=== PATIENT | female | born 1985 | race African-American/Black ===

== ENCOUNTER 2016-09-12 11:24 | Day surgery (SDC) | payer MEDICAID ==
--- NOTE | 2016-09-12 11:32 | Short Stay Summary ---
Short Stay Documentation Date of service: 09/12/16 Narrative H&P: Pt is a 30yo AF G0 LMP 08/16/16 presents for surgical evaluation and treatment of extensive vaginal/rectal condylomas. She is scheduled for laser ablation of extensive vaginal/rectal condylomas. - History Principal diagnosis: Extensive condyloma acuminata H&P: obtained from office Past Medical History: HIV/AIDS, other (paranoid schizophrenia) Past Surgical History: No surgical history Social history: no significant social history, single, smoking - Allergies and Medications Current Medications: Allergies No Known Allergies Allergy (Verified 05/22/16 11:34) Home Medications Medication Instructions Recorded Confirmed Last Taken Type LORazepam [Ativan] 2 mg PO QDAY 11/30/15 07/09/16 12/09/15 22:00 History Ibuprofen [Motrin] 800 mg PO Q8HR PRN 12/10/15 07/09/16 12/09/15 22:00 History Hydroxyzine HCl 25 mg PO BID PRN #60 tablet 05/23/16 07/09/16 Unknown Rx Benztropine [Cogentin] 0.5 mg PO BID #60 tablet 06/21/16 07/09/16 Unknown Rx Docusate Sodium [Colace] 100 mg PO BID PRN #20 capsule 06/21/16 07/09/16 Unknown Rx Emtricitab/Rilpivirine/Tenofov 1 each PO DAILY #30 tablet 06/21/16 07/09/16 Unknown Rx [Complera Tablet] FLUoxetine [PROzac] 10 mg PO QDAY #30 tablet 06/21/16 07/09/16 Unknown Rx Magnesium Citrate [Citrate of 300 ml PO NOW #1 bottle 06/21/16 07/09/16 Unknown Rx Magnesia] cloZAPine 100 mg PO QAM #30 tablet 06/21/16 07/09/16 Unknown Rx - Physical exam General appearance: no acute distress Integumentary: no rash HEENT: Atraumatic Lungs: Clear to auscultation Breasts: deferred Heart: Regular rate Gastrointestinal: normal Female Genitourinary: lesions (extensive vulvar/rectal condyloma) Rectal Exam: other (condylomas) Extremities: No edema Neurological: Normal speech - Brief post op/procedure progress note Date of procedure: 09/12/16 Pre-op diagnosis: Extensive vaginal/rectal condylomas Post-op diagnosis: same Procedure: Laser ablation of extensive vaginal/rectal condylomas Anesthesia: GETA Findings: Extensive vaginal codylomas from the mons pubis, bilateral labia majora and abimael -rectal areas. Surgeon: CHIP GARG Estimated blood loss: minimal Pathology: none Condition: stable - Hospital course Hospital course: Unremarkable. - Disposition Condition at discharge: Good Disposition: DISCHARGED TO HOME OR SELFCARE - Discharge Diagnoses (1) Condyloma of female genitalia Status: Chronic Short Stay Discharge Plan Activity: no restrictions Diet: regular Wound: open to air, keep clean and dry Additional Instructions: Sitz baths twice a day Follow up with: PRIMARY CARE, [Primary Care Provider] - 7 Days CHIP GARG MD [Staff Physician] - 14 Days Prescriptions: Acetaminophen/Codeine [Tylenol #3] 1 tab PO Q6H PRN #30 tab PRN Reason: Pain, Moderate (4-6)
[2016-09-12] MEDS ORDERED: DIPRIVAN 10 MG/ML IV ONE (11:36)
[2016-09-12] MEDS ORDERED: XYLOCAINE CARDIAC IV ONE (11:36)
[2016-09-12] MEDS ORDERED: SUBLIMAZE ONE (11:36)
[2016-09-12] MEDS ORDERED: ANCEF/STERILE WATER 2 GM/20 ML 20 ML IV NR (12:00)
[2016-09-12] MEDS ORDERED: LACTATED RINGERS 1,000 ML IV SCH (12:00)
[2016-09-12 12:39] LABS: Hematocrit 40.9 % (30.3-42.9); Hemoglobin 13.8 gm/dl (10.1-14.3); Mean Corpuscular HGB Conc 34 % (30-34); Mean Corpuscular Hemoglobin 31 pg (28-32); Mean Corpuscular Volume 93 fl (79-97); Platelet Count 188 K/mm3 (140-440); White Blood Count 6.8 K/mm3 (4.5-11.0)
--- NOTE | 2016-09-12 13:15 | Anesthesia Day of Surgery ---
Anesthesia Day of Surgery - Day of Surgery Patient Examined: Yes Patient H&P Reviewed: Yes Patient is NPO: Yes
--- NOTE | 2016-09-12 13:18 | Anesthesia Consultation ---
Anesthesia Consult and Med Hx Date of service: 09/12/16 - Airway Anesthetic Teeth Evaluation: Good ROM Head & Neck: Adequate Mental/Hyoid Distance: Adequate Mallampati Class: Class I Intubation Access Assessment: Good - Pulmonary Exam CTA: Yes - Cardiac Exam Cardiac Exam: RRR - Pre-Operative Health Status ASA Pre-Surgery Classification: ASA3 Proposed Anesthetic Plan: General - Pre-Anesthesia Comment Pre-Anesthesia Comments: C/o left chest pain, HIV - Pulmonary Hx Smoking: Yes (BRIEFLY THREE YEARS AGO) Hx Asthma: No Hx Sleep Apnea: No - Cardiovascular System Hx Hypertension: No Hx Heart Attack/AMI: No Hx Heart Murmur: No - Central Nervous System Hx Seizures: No CVA: No Hx Psychiatric Problems: Yes (schizophrenic, on meds) - Gastrointestinal Hx Gastroesophageal Reflux Disease: No - Endocrine Hx Renal Disease: No Hx End Stage Renal Disease: No Hx Liver Disease: No - Hematic Hx Anemia: No Hx Sickle Cell Disease: No - Other Systems Hx Alcohol Use: Yes (SOMETIMES HAS HAD BEER OR WINE) Hx Substance Use: No Hx Cancer: No Hx Obesity: No - Additional Comments Anesthesia Medical History Comments: NAC
[2016-09-12] MEDS ORDERED: PEPCID PO NR (14:00)
[2016-09-12] MEDS ORDERED: VERSED ONE (15:58)
[2016-09-12] MEDS ORDERED: ZEMURON IV ONE (15:59)
[2016-09-12] MEDS ORDERED: QUELICIN ONE (15:59)
[2016-09-12] MEDS ORDERED: ZOFRAN ONE ×2 (16:16→16:17)
[2016-09-12] MEDS ORDERED: DECADRON ONE (16:16)
[2016-09-12] MEDS ORDERED: LACTATED RINGERS 1,000 ML ONE (16:29)
[2016-09-12] MEDS ORDERED: TORADOL ONE (16:38)
[2016-09-12] MEDS ORDERED: XYLOCAINE TOPICAL 2% MM ONE (16:58)
[2016-09-12] MEDS ORDERED: THERMAZENE 50 GRAM TP ONE (16:58)
--- NOTE | 2016-09-12 17:10 | Post Anesthesia Evaluation ---
- Post Anesthesia Evaluation Patient Participated: Yes Airway Patent: Yes Stable Respiratory Function: Yes Nausea/Vomiting: No Temp > 96.8F: Yes Pain Manageable: Yes Adequeate Hydration: Yes Anesthesia Complications: No
--- NOTE | 2016-09-12 17:16 | Operative Report ---
Operative Report Operative Report: Date of procedure: 09/12/2016 Pre-operative diagnosis: Extensive vaginal/rectal condylomas Post-operative diagnosis: Same Procedure name(s): Laser ablation of extensive vaginal/rectal condylomas Surgeon: Todd Quesada MD Teacher Of The Handicapped: None Anesthesia: General endotracheal intubation by Dr. Patrick Sy EBL: Minimal Findings: Extensive condylomas extending from the mons pubis to both labia majoras bilaterally and down to the abimael-rectal area Procedure: After the patient was correctly identified, she was prepped and draped with wet towels in usual sterile fashion and placed in dorsolithotomy position. The pubic hairs were shaved thus exposing the condylomas. The carbon dioxide laser was set at 10 W continuous, and was used to completely ablate all the condylomas from the mons pubis, the left and right labia majora, and the abimael-rectal area. After all the condylomas was satisfactorily ablated, the procedure was considered complete. A mixture of 1% Silvadene cream and viscous lidocaine was applied to the perineal area including the mons and the rectum. The patient tolerated the procedure well and was transported to recovery room in stable condition.
[2016-09-12 17:37] VITALS: BP 111/76
== END 2016-09-12 18:55 | disposition home or self-care (01) ==
LOC: OR 11:24
PROVIDERS: ATTEND Obstetrics & Gynecology
DX: A63.0 Anogenital (venereal) warts (principal); F20.0 Paranoid schizophrenia; F17.210 Nicotine dependence, cigarettes, uncomplicated; Z72.89 Other problems related to lifestyle
CPT/HCPCS: 36415; 57065; 81025; 85027; J0330; J0690; J1100; J1885; J2001; J2250; J2405; J2704; J3010; J7120

== ENCOUNTER 2016-10-01 12:37 | Emergency (ER) | payer MEDICAID ==
[2016-10-01 12:49] VITALS: BP 113/77
--- NOTE | 2016-10-01 16:21 | Emergency Department Report ---
HPI - General Chief Complaint: Recheck/Abnormal Lab/Rx Time Seen by Provider: 10/01/16 16:14 - HPI HPI: 30-year-old female presents today stating she wants a refill for hydroxyzine HCL 25 mg one tablet by mouth twice a day as needed for anxiety. Patient was prescribed this medication here by Dr. Sterling and states that her psychologist would not refill this medication. Patient is currently only taking clozapine 100 mg by mouth twice a day. Patient denies any medical complaints. Denies fever, chills, nausea, vomiting, chest pain, shortness of breath, abdominal pain. Denies suicidal or homicidal ideations. ED Past Medical Hx - Past Medical History Hx Hypertension: No Hx Heart Attack/AMI: No Hx Congestive Heart Failure: No Hx GERD: No (NOT DIAGNOSED) Hx Liver Disease: No Hx Renal Disease: No Hx Sickle Cell Disease: No Hx Arthritis: No Hx Seizures: No Hx Psychiatric Treatment: Yes (paranoid schizophrenia, PANIC ATTACKS, frequent hospitalizations) Hx Asthma: No Hx Tuberculosis: No Hx HIV: Yes Additional medical history: Psychiatric medications are unknown - Social History Smoking Status: Current Every Day Smoker Substance Use Type: Alcohol - Medications Home Medications: Home Medications Medication Instructions Recorded Confirmed Last Taken Type Benztropine [Cogentin] 0.5 mg PO BID #60 tablet 06/21/16 09/12/16 09/11/16 22: 00 Rx Docusate Sodium [Colace] 100 mg PO BID PRN #20 capsule 06/21/16 09/12/16 Rx Emtricitab/Rilpivirine/Tenofov 1 each PO DAILY #30 tablet 06/21/16 09/12/16 09:30 Rx [Complera Tablet] FLUoxetine [PROzac] 10 mg PO QDAY #30 tablet 06/21/16 09/12/16 09/11/16 22:00 Rx Acetaminophen/Codeine [Tylenol #3] 1 tab PO Q6H PRN #30 tab 09/12/16 Unknown Rx cloZAPine 100 mg PO BID 09/12/16 09/12/16 09/11/16 21:00 History Hydroxyzine HCl 25 mg PO BID #30 tablet 10/01/16 Unknown Rx ED Review of Systems ROS: Stated complaint: RX REFILL Other details as noted in HPI Physical Exam - Physical Exam Vital Signs: Vital Signs 10/01/16 12:45 Temperature 97.9 F Pulse Rate 120 H Respiratory 18 Rate Blood Pressure 113/77 O2 Sat by Pulse 98 Oximetry Physical Exam: GENERAL: The patient is well-developed and well-nourished. Patient is in NAD. HEAD: Normocephalic. Atraumatic. CHEST/LUNGS: Clear to auscultation throughout. HEART/CARDIOVASCULAR: Regular rate and rhythm. No murmurs, rubs or gallops. ABDOMEN: Abdomen is soft, nontender. Bowel sounds normoactive. No guarding or rebound tenderness. EXTREMITIES: Peripheral pulses intact. Capillary refill less than 2 seconds. NEURO: Alert and oriented x 3. Normal gait. ED Course Vital Signs 10/01/16 12:45 Temperature 97.9 F Pulse Rate 120 H Respiratory 18 Rate Blood Pressure 113/77 O2 Sat by Pulse 98 Oximetry ED Medical Decision Making - Lab Data Vital Signs 10/01/16 10/01/16 12:45 16:39 Temperature 97.9 F Pulse Rate 120 H 96 H Respiratory 18 16 Rate Blood Pressure 113/77 O2 Sat by Pulse 98 99 Oximetry - Medical Decision Making 30-year-old female presents today for medication refill of hydroxyzine HCL. Explained to patient that emergency department is not place for medication refill, patient expressed understanding. Recommended patient to follow up with her psychologist. Patient is in no acute distress at this time. She will be discharged home and is encouraged to follow up with a primary care provider. She will be sent home on hydroxyzine and is encouraged to return to the emergency room for any worsening symptoms. Critical care attestation.: If time is entered above; I have spent that time in minutes in the direct care of this critically ill patient, excluding procedure time. ED Disposition Clinical Impression: Anxiety Disposition: DISCHARGED TO HOME OR SELFCARE Is pt being admited?: No Does the pt Need Aspirin: No Condition: Stable Instructions: Anxiety (ED) Additional Instructions: Follow-up with primary care provider. Return to the emergency department if symptoms worsen. Prescriptions: Hydroxyzine HCl 25 mg PO BID #30 tablet Referrals: PRIMARY CAREMD [Primary Care Provider] - 3-5 Days NIKOS CONTRERAS MD [Staff Physician] - 3-5 Days Forms: Work/School Release Form(ED) Time of Disposition: 16:26
== END 2016-10-01 16:39 | disposition home or self-care (01) ==
LOC: ED 12:37
DX: F41.9 Anxiety disorder, unspecified (principal); Z21 Asymptomatic human immunodeficiency virus [HIV] infection status; F17.200 Nicotine dependence, unspecified, uncomplicated
CPT/HCPCS: 99282

== ENCOUNTER 2016-10-17 10:57 | Emergency (ER) | payer MEDICAID ==
--- NOTE | 2016-10-17 13:30 | Emergency Department Report ---
Chief Complaint: Medical Clearance Stated Complaint: MEDICATION REFILL Time Seen by Provider: 10/17/16 13:09 - HPI History of Present Illness: Patient presents with request for refill on hydroxyzine which she states she takes for anxiety. With continued questioning to the patient she asks, "when am I going to see a dr?" She then begins to yell, scream at me asking why she has been waiting for so long. - ROS Review of Systems: All other systems unremarkable except documentation in HPI - Exam Vital Signs: Vital Signs 10/17/16 11:03 Temperature 98.8 F Pulse Rate 95 H Respiratory 16 Rate Blood Pressure 108/76 O2 Sat by Pulse 100 Oximetry Physical Exam: Physical exam was not done due to patient yelling and screaming before full history was taken MSE screening note: Focused history and physical exam performed. Due to findings the following was ordered: seen by provider, laboratory studies ordered, and to go to main ED to be seen by physician ED Medical Decision Making - Medical Decision Making seen by provider, laboratory studies ordered, and to go to main ED to be seen by physician - Differential Diagnosis anxiety, schizophrenia ED Disposition for MSE Condition: Stable Referrals: PRIMARY CARE, [Primary Care Provider] - 3-5 Days
--- NOTE | 2016-10-17 14:59 | Emergency Department Report ---
HPI - General Chief Complaint: Medical Clearance Time Seen by Provider: 10/17/16 13:09 - HPI HPI: The patient is a 31-year-old female presents for evaluation of anxiety. The patient reports constant and severe anxiety for the past one to 2 days, improved with rest. She states that she has been out of her anxiety medication. The patient denies fever, headache, unexplained weight loss or weight gain, heat or cold intolerance, skin, hair, or nail changes, neuro deficits, homicidal ideations, or auditory or visual hallucinations. ED Past Medical Hx - Past Medical History Previous Medical History?: Yes Hx Hypertension: No Hx Heart Attack/AMI: No Hx Congestive Heart Failure: No Hx GERD: No (NOT DIAGNOSED) Hx Liver Disease: No Hx Renal Disease: No Hx Sickle Cell Disease: No Hx Arthritis: No Hx Seizures: No Hx Psychiatric Treatment: Yes (paranoid schizophrenia, PANIC ATTACKS, frequent hospitalizations) Hx Asthma: No Hx Tuberculosis: No Hx HIV: Yes Additional medical history: Psychiatric medications are unknown - Surgical History Past Surgical History?: No - Social History Smoking Status: Never Smoker Substance Use Type: Alcohol - Medications Home Medications: Home Medications Medication Instructions Recorded Confirmed Last Taken Type Benztropine [Cogentin] 0.5 mg PO BID #60 tablet 06/21/16 09/12/16 09/11/16 22: 00 Rx Docusate Sodium [Colace] 100 mg PO BID PRN #20 capsule 06/21/16 09/12/16 Rx Emtricitab/Rilpivirine/Tenofov 1 each PO DAILY #30 tablet 06/21/16 09/12/16 09:30 Rx [Complera Tablet] FLUoxetine [PROzac] 10 mg PO QDAY #30 tablet 06/21/16 09/12/16 09/11/16 22:00 Rx Acetaminophen/Codeine [Tylenol #3] 1 tab PO Q6H PRN #30 tab 09/12/16 Unknown Rx cloZAPine 100 mg PO BID 09/12/16 09/12/16 09/11/16 21:00 History Hydroxyzine HCl 25 mg PO BID #10 tablet 10/17/16 Unknown Rx ED Review of Systems ROS: Stated complaint: MEDICATION REFILL Other details as noted in HPI Constitutional: denies: fever ENT: denies: throat or neck pain Respiratory: denies: cough, shortness of breath Cardiovascular: denies: chest pain Endocrine: denies unexplained weight loss or gain Gastrointestinal: denies: abdominal pain, nausea Genitourinary: denies: dysuria Musculoskeletal: denies: leg swelling Skin: denies: rash Neurological: denies: headache Hematological/Lymphatic: denies: easy bleeding or easy bruising Psych: reports anxiety Physical Exam - Physical Exam Vital Signs: Vital Signs 10/17/16 11:03 Temperature 98.8 F Pulse Rate 95 H Respiratory 16 Rate Blood Pressure 108/76 O2 Sat by Pulse 100 Oximetry Physical Exam: General: well-nourished, well-developed, no acute distress Head: Normocephalic, atraumatic Eyes: normal sclera ENT: Mucous membranes are pink and moist Neck: trachea midline, neck supple, No neck stiffness, no cervical adenopathy Respiratory: Breath sounds equal bilaterally, no wheezing, rales, or rhonchi Cardio: S1 and S2 present, no murmurs, rubs, gallops, capillary refill is brisk Abdomen: Normoactive bowel sounds, soft abdomen, no rigidity, no guarding or rebound tenderness Chest WALL/Back: No tenderness to palpation of the chest wall, no CVA tenderness with percussion Musc: No pitting edema Skin: No rash Neuro: no facial drooping, normal speech Psych: Normal affect, anxious mood, normal insight, normal cognition, no suicidal ideation ED Course Vital Signs 10/17/16 11:03 Temperature 98.8 F Pulse Rate 95 H Respiratory 16 Rate Blood Pressure 108/76 O2 Sat by Pulse 100 Oximetry ED Medical Decision Making - Medical Decision Making The patient was seen and examined by myself. The patient is placed on a fur tinter and continuous pulse ox. On initial evaluation, the patient was found to be in no distress. No signs of acute manic episode or metabolic etiology of patient's symptoms. The patient is stable for discharge with outpatient follow-up. The patient is given follow-up and return instructions. The patient expressed understanding and agreed with the plan. The patient is discharged in stable condition. Critical care attestation.: If time is entered above; I have spent that time in minutes in the direct care of this critically ill patient, excluding procedure time. ED Disposition Clinical Impression: Panic attack Disposition: DISCHARGED TO HOME OR SELFCARE Is pt being admited?: No Does the pt Need Aspirin: No Condition: Stable Instructions: Anxiety (ED), Generalized Anxiety Disorder (ED) Referrals: [facility] [Outside] - 3-5 Days [facility] [Outside] - 3-5 Days Time of Disposition: 15:02
[2016-10-17 15:23] VITALS: BP 111/77
== END 2016-10-17 15:23 | disposition home or self-care (01) ==
LOC: ED 10:57
DX: F41.0 Panic disorder [episodic paroxysmal anxiety] (principal); F20.0 Paranoid schizophrenia
CPT/HCPCS: 99283

== ENCOUNTER 2016-10-24 17:26 | Emergency (ER) | payer MEDICAID ==
[2016-10-24 17:59] VITALS: BP 106/79
== END 2016-10-24 20:00 | disposition left against medical advice (07) ==
LOC: ED 17:26
DX: Z76.0 Encounter for issue of repeat prescription (principal); Z53.21 Procedure and treatment not carried out due to patient leaving prior to being seen by health care provider

== ENCOUNTER 2016-12-04 20:26 | Emergency (ER) | payer MEDICAID | END 2016-12-04 21:00 | disposition left against medical advice (07) | LOC: ED 20:26 | DX: K59.00 Constipation, unspecified (principal); Z53.21 Procedure and treatment not carried out due to patient leaving prior to being seen by health care provider ==

== ENCOUNTER 2017-01-23 16:54 | Emergency (ER) | payer MEDICAID ==
[2017-01-23 17:05] VITALS: BP 116/77
--- NOTE | 2017-01-23 18:23 | Emergency Department Report ---
Entered by WENCESLAO MATA, acting as scribe for SHAINA PEREZ PA. Chief Complaint: Sore Throat Stated Complaint: SORE THROAT Time Seen by Provider: 01/23/17 17:55 - HPI History of Present Illness: Pt c/o sore throat and fever that began 2 days ago. Pt's fever is currently 98.4 in triage. PMHx of HIV, anxiety, and schizophrenia Non-compliant with medications, because she states she doesn't feel comfortable taking medication. Pt also states that she doesn't want to go home and have no place to go, because she argues a lot with her father. - ROS Review of Systems: All systems are negative unless stated in the HPI above. - Exam Vital Signs: Vital Signs 01/23/17 17:00 Temperature 98 F Pulse Rate 95 H Respiratory 18 Rate Blood Pressure 116/77 O2 Sat by Pulse 95 Oximetry Physical Exam: GENERAL: Patient is alert and oriented x 3. No apparent distress, normal gait, atraumatic. PSYCHIATRIC: Anxious. Denies suicidal or homicidal ideations. MSE screening note: Focused history and physical exam performed. Due to findings the following was ordered: ED Medical Decision Making - Medical Decision Making Patient seen by provider in triage area. Patient will be sent to the main ED to be seen by another provider for further evaluation. ED Disposition for MSE Condition: Stable This documentation as recorded by the scribe,WENCESLAO MATA,accurately reflects the service I personally performed and the decisions made by me, SHAINA PEREZ PA.
--- NOTE | 2017-01-27 15:58 | ED Elopement Review ---
ED Pt Elopement review - Call Back decision Pt Call Back Decision: No action required
== END 2017-01-23 18:23 | disposition left against medical advice (07) ==
LOC: ED 16:54
DX: J02.9 Acute pharyngitis, unspecified (principal); R50.9 Fever, unspecified; F41.9 Anxiety disorder, unspecified; F20.9 Schizophrenia, unspecified; Z53.21 Procedure and treatment not carried out due to patient leaving prior to being seen by health care provider

== ENCOUNTER 2017-04-24 12:54 | Emergency (ER) | payer MEDICAID ==
--- NOTE | 2017-04-24 14:07 | Emergency Department Report ---
Stated Complaint: MH/ MEDS Time Seen by Provider: 04/24/17 14:05 - HPI History of Present Illness: PT states she feels depressed. PT states her family does not want to live with her. PT states she does not feel safe at home. - ROS Review of Systems: + depression - Exam Physical Exam: PT is alert rapid speech in triage MSE screening note: Focused history and physical exam performed. Due to findings the following was ordered: labs ED Disposition for MSE Condition: Stable
[2017-04-24 14:10] VITALS: BP 126/97
[2017-04-24 14:23] LABS: Urine Drugs of Abuse Note Disclamer
[2017-04-24 14:29] LABS: Basophils % (Auto) 0.3 % (0.0-1.8); Eosinophils % (Auto) 0.8 % (0.0-4.3); Hematocrit 40.1 % (30.3-42.9); Hemoglobin 13.6 gm/dl (10.1-14.3); Mean Corpuscular HGB Conc 34 % (30-34); Mean Corpuscular Hemoglobin 32 pg (28-32); Mean Corpuscular Volume 94 fl (79-97); Platelet Count 218 K/mm3 (140-440); Red Blood Count 4.26 M/mm3 (3.65-5.03); Red Cell Distribution Width 13.9 % (13.2-15.2); White Blood Count 7.8 K/mm3 (4.5-11.0)
[2017-04-24 14:35] LABS: Bacteria,Urine 1+ /HPF (Negative); Bilirubin,Urine NEG (Negative); Blood,Urine NEG (Negative); Ketones,Urine NEG (Negative); Leukocyte Esterase,Urine NEG (Negative); Mucus,Urine FEW /HPF; Nitrite,Urine NEG (Negative); Protein,Urine <15 mg/dL mg/dL (Negative); Urobilinogen,Urine < 2.0 mg/dL (<2.0)
[2017-04-24 14:46] LABS: Alanine Aminotransferase 16 units/L (7-56); Albumin 4.1 g/dL (3.9-5); Alkaline Phosphatase 64 units/L (35-129); Anion Gap 15 mmol/L; BUN/Creatinine Ratio 11.66; Blood Urea Nitrogen 7 mg/dL (7-17); Calcium 8.9 mg/dL (8.4-10.2); Carbon Dioxide 27 mmol/L (22-30); Chloride 100.4 mmol/L (98-107); Glucose 73 mg/dL (65-100); Lipase 22 units/L (13-60); Potassium 4.1 mmol/L (3.6-5.0); Sodium 138 mmol/L (137-145); Total Protein 8.2 g/dL (6.3-8.2)
[2017-04-24 14:49] LABS: RBC,Urine < 1.0 /HPF (0.0-6.0); WBC,Urine < 1.0 /HPF (0.0-6.0)
--- NOTE | 2017-04-24 23:37 | ED Elopement Review ---
ED Pt Elopement review - Results review Lab results: Laboratory Tests 04/24/17 04/24/17 04/24/17 14:13 14:13 14:13 WBC 7.8 RBC 4.26 Hgb 13.6 Hct 40.1 MCV 94 MCH 32 MCHC 34 RDW 13.9 Plt Count 218 Lymph % (Auto) 29.6 [place] % (Auto) 8.0 H Eos % (Auto) 0.8 Baso % (Auto) 0.3 Lymph # 2.3 Garrard # 0.6 Eos # 0.1 Baso # 0.0 Seg Neutrophils % 61.3 Seg Neutrophils # 4.8 Sodium 138 Potassium 4.1 Chloride 100.4 Carbon Dioxide 27 Anion Gap 15 BUN 7 Creatinine 0.6 L Estimated GFR > 60 BUN/Creatinine Ratio 11.66 Glucose 73 Calcium 8.9 Total Bilirubin 0.40 AST 21 ALT 16 Alkaline Phosphatase 64 Total Protein 8.2 Albumin 4.1 Albumin/Globulin Ratio 1.0 Lipase 22 HCG, Qual Urine Color Urine Turbidity Urine pH Ur Specific [place] Urine Protein Urine Glucose (UA) Urine Ketones Urine Blood Urine Nitrite Urine Bilirubin Urine Urobilinogen Ur Leukocyte Esterase Urine WBC (Auto) Urine RBC (Auto) U Epithel Cells (Auto) Urine Bacteria (Auto) Urine Mucus Urine Opiates Screen Urine Methadone Screen Acetaminophen < 15.0 Ur Barbiturates Screen Ur Phencyclidine Scrn Ur Amphetamines Screen U Benzodiazepines Scrn Urine Cocaine Screen U Marijuana (THC) Screen Drugs of Abuse Note Plasma/Serum Alcohol 04/24/17 04/24/17 04/24/17 14:13 14:13 14:17 WBC RBC Hgb Hct MCV MCH MCHC RDW Plt Count Lymph % (Auto) [place] % (Auto) Eos % (Auto) Baso % (Auto) Lymph # [place] # Eos # Baso # Seg Neutrophils % Seg Neutrophils # Sodium Potassium Chloride Carbon Dioxide Anion Gap BUN Creatinine Estimated GFR BUN/Creatinine Ratio Glucose Calcium Total Bilirubin AST ALT Alkaline Phosphatase Total Protein Albumin Albumin/Globulin Ratio Lipase HCG, Qual Negative Urine Color Straw Urine Turbidity Clear Urine pH 6.0 Ur Specific [place] 1.008 Urine Protein <15 mg/dl Urine Glucose (UA) Neg Urine Ketones Neg Urine Blood Neg Urine Nitrite Neg Urine Bilirubin Neg Urine Urobilinogen < 2.0 Ur Leukocyte Esterase Neg Urine WBC (Auto) < 1.0 Urine RBC (Auto) < 1.0 U Epithel Cells (Auto) 3.0 Urine Bacteria (Auto) 1+ Urine Mucus Few Urine Opiates Screen Urine Methadone Screen Acetaminophen Ur Barbiturates Screen Ur Phencyclidine Scrn Ur Amphetamines Screen U Benzodiazepines Scrn Urine Cocaine Screen U Marijuana (THC) Screen Drugs of Abuse Note Plasma/Serum Alcohol < 0.01 04/24/17 14:17 WBC RBC Hgb Hct MCV MCH MCHC RDW Plt Count Lymph % (Auto) [place] % (Auto) Eos % (Auto) Baso % (Auto) Lymph # [place] # Eos # Baso # Seg Neutrophils % Seg Neutrophils # Sodium Potassium Chloride Carbon Dioxide Anion Gap BUN Creatinine Estimated GFR BUN/Creatinine Ratio Glucose Calcium Total Bilirubin AST ALT Alkaline Phosphatase Total Protein Albumin Albumin/Globulin Ratio Lipase HCG, Qual Urine Color Urine Turbidity Urine pH Ur Specific [place] Urine Protein Urine Glucose (UA) Urine Ketones Urine Blood Urine Nitrite Urine Bilirubin Urine Urobilinogen Ur Leukocyte Esterase Urine WBC (Auto) Urine RBC (Auto) U Epithel Cells (Auto) Urine Bacteria (Auto) Urine Mucus Urine Opiates Screen Presumptive negative Urine Methadone Screen Presumptive negative Acetaminophen Ur Barbiturates Screen Presumptive negative Ur Phencyclidine Scrn Presumptive negative Ur Amphetamines Screen Presumptive negative U Benzodiazepines Scrn Presumptive negative Urine Cocaine Screen Presumptive negative U Marijuana (THC) Screen Presumptive negative Drugs of Abuse Note Disclamer Plasma/Serum Alcohol - Call Back decision Pt Call Back Decision: No action required
== END 2017-04-24 17:55 | disposition left against medical advice (07) ==
LOC: ED 12:54
DX: F32.9 Major depressive disorder, single episode, unspecified (principal); Z53.21 Procedure and treatment not carried out due to patient leaving prior to being seen by health care provider
CPT/HCPCS: 36415; 80053; 80307; 81001; 83690; 84703; 85025; G0480; 80320

== ENCOUNTER 2017-05-08 09:53 | Emergency (ER) | payer MEDICAID ==
[2017-05-08] MEDS ORDERED: ZOFRAN IV ONE (11:44)
[2017-05-08] MEDS ORDERED: NACL 0.9% 1000 ML 1,000 ML IV ONE (11:44)
[2017-05-08 12:11] LABS: Basophils % (Auto) 0.2 % (0.0-1.8); Eosinophils % (Auto) 0.5 % (0.0-4.3); Hematocrit 42.6 % (30.3-42.9); Hemoglobin 14.5 gm/dl (10.1-14.3); Mean Corpuscular HGB Conc 34 % (30-34); Mean Corpuscular Hemoglobin 32 pg (28-32); Mean Corpuscular Volume 95 fl (79-97); Platelet Count 213 K/mm3 (140-440); Red Blood Count 4.51 M/mm3 (3.65-5.03); Red Cell Distribution Width 13.7 % (13.2-15.2); White Blood Count 9.8 K/mm3 (4.5-11.0)
[2017-05-08 12:29] LABS: Alanine Aminotransferase 11 units/L (7-56); Alkaline Phosphatase 72 units/L (35-129); Anion Gap 18 mmol/L; Blood Urea Nitrogen 7 mg/dL (7-17); Calcium 8.9 mg/dL (8.4-10.2); Carbon Dioxide 23 mmol/L (22-30); Chloride 99.7 mmol/L (98-107); Glucose 78 mg/dL (65-100); Lipase 13 units/L (13-60); Sodium 137 mmol/L (137-145); Total Protein 8.2 g/dL (6.3-8.2)
--- NOTE | 2017-05-08 12:30 | Emergency Department Report ---
ED Abdominal Pain HPI - General Chief Complaint: Abdominal Pain Stated Complaint: ABD PAIN Time Seen by Provider: 05/08/17 11:21 Source: patient, EMS Mode of arrival: Ambulatory Limitations: Language Barrier - History of Present Illness Initial Comments: 31-year-old female with known psychiatric history here complaining of vague abdominal pain. Patient denies SI or HI. She is requesting a surgery on her abdomen because there is something inside. Denies fevers chills nausea vomiting. Denies any plans to harm herself. MD Complaint: abdominal pain Location: diffuse Radiation: none Migration to: no migration Improves With: nothing Worsens With: nothing Associated Symptoms: denies other symptoms - Related Data Home Medications Medication Instructions Recorded Confirmed Last Taken cloZAPine 100 mg PO BID 09/12/16 09/12/16 09/11/16 21:00 Previous Rx's Medication Instructions Recorded Last Taken Type Benztropine [Cogentin] 0.5 mg PO BID #60 tablet 06/21/16 09/11/16 22:00 Rx Docusate Sodium [Colace] 100 mg PO BID PRN #20 capsule 06/21/16 08/29/16 Rx Emtricitab/Rilpivirine/Tenofov 1 each PO DAILY #30 tablet 06/21/16 09/12/16 09: 30 Rx [Complera Tablet] FLUoxetine [PROzac] 10 mg PO QDAY #30 tablet 06/21/16 09/11/16 22:00 Rx Acetaminophen/Codeine [Tylenol #3] 1 tab PO Q6H PRN #30 tab 09/12/16 Unknown Rx Hydroxyzine HCl 25 mg PO BID #10 tablet 10/17/16 Unknown Rx Allergies Allergy/AdvReac Type Severity Reaction Status Date / Time No Known Allergies Allergy Verified 05/22/16 11:34 ED Review of Systems ROS: Stated complaint: ABD PAIN Other details as noted in HPI Comment: All other systems reviewed and negative Constitutional: denies: chills, fever Eyes: denies: eye pain, eye discharge, vision change ENT: denies: ear pain, throat pain Respiratory: denies: cough, shortness of breath, wheezing Cardiovascular: denies: chest pain, palpitations Endocrine: no symptoms reported Gastrointestinal: denies: abdominal pain, nausea, diarrhea Genitourinary: denies: urgency, dysuria, discharge Musculoskeletal: denies: back pain, joint swelling, arthralgia Skin: denies: rash, lesions Neurological: denies: headache, weakness, paresthesias Psychiatric: denies: anxiety, depression Hematological/Lymphatic: denies: easy bleeding, easy bruising ED Past Medical Hx - Past Medical History Previous Medical History?: Yes Hx Hypertension: No Hx Heart Attack/AMI: No Hx Congestive Heart Failure: No Hx GERD: (NOT DIAGNOSED) Hx Liver Disease: No Hx Renal Disease: No Hx Sickle Cell Disease: No Hx Arthritis: No Hx Seizures: No Hx Psychiatric Treatment: Yes (paranoid schizophrenia, PANIC ATTACKS, frequent hospitalizations) Hx Asthma: No Hx Tuberculosis: No Hx HIV: Yes Additional medical history: Psychiatric medications are unknown - Surgical History Past Surgical History?: No - Family History Family history: no significant - Social History Smoking Status: Former Smoker Substance Use Type: Alcohol, Prescribed - Medications Home Medications: Home Medications Medication Instructions Recorded Confirmed Last Taken Type Benztropine [Cogentin] 0.5 mg PO BID #60 tablet 06/21/16 09/12/16 09/11/16 22: 00 Rx Docusate Sodium [Colace] 100 mg PO BID PRN #20 capsule 06/21/16 09/12/16 Rx Emtricitab/Rilpivirine/Tenofov 1 each PO DAILY #30 tablet 06/21/16 09/12/16 09:30 Rx [Complera Tablet] FLUoxetine [PROzac] 10 mg PO QDAY #30 tablet 06/21/16 09/12/16 09/11/16 22:00 Rx Acetaminophen/Codeine [Tylenol #3] 1 tab PO Q6H PRN #30 tab 09/12/16 Unknown Rx cloZAPine 100 mg PO BID 09/12/16 09/12/16 09/11/16 21:00 History Hydroxyzine HCl 25 mg PO BID #10 tablet 10/17/16 Unknown Rx ED Physical Exam - General Limitations: Language Barrier General appearance: alert, in no apparent distress, other (disheveled) - Head Head exam: Present: atraumatic, normocephalic - Eye Eye exam: Present: normal appearance - ENT ENT exam: Present: mucous membranes moist - Neck Neck exam: Present: normal inspection - Respiratory Respiratory exam: Present: normal lung sounds bilaterally. Absent: respiratory distress, wheezes, rales - Cardiovascular Cardiovascular Exam: Present: regular rate, normal rhythm. Absent: systolic murmur, diastolic murmur, rubs, gallop - GI/Abdominal GI/Abdominal exam: Present: soft, distended, normal bowel sounds. Absent: tenderness, guarding, rebound, rigid - Extremities Exam Extremities exam: Present: normal inspection - Back Exam Back exam: Present: normal inspection - Neurological Exam Neurological exam: Present: alert, oriented X3 - Psychiatric Psychiatric exam: Present: normal affect, normal mood - Skin Skin exam: Present: warm, dry, intact, normal color. Absent: rash ED Course Vital Signs 05/08/17 05/08/17 09:57 11:24 Temperature 97.8 F Pulse Rate 94 H Respiratory 20 18 Rate Blood Pressure 109/78 O2 Sat by Pulse 100 100 Oximetry ED Medical Decision Making - Lab Data Result diagrams: 05/08/17 11:52 05/08/17 11:52 Laboratory Results - last 24 hr 05/08/17 05/08/17 11:52 11:52 WBC 9.8 RBC 4.51 Hgb 14.5 H Hct 42.6 MCV 95 MCH 32 MCHC 34 RDW 13.7 Plt Count 213 Lymph % (Auto) 27.7 [place] % (Auto) 5.9 Eos % (Auto) 0.5 Baso % (Auto) 0.2 Lymph # 2.7 [place] # 0.6 Eos # 0.1 Baso # 0.0 Seg Neutrophils % 65.7 Seg Neutrophils # 6.4 Sodium 137 Potassium 4.0 Chloride 99.7 Carbon Dioxide 23 Anion Gap 18 BUN 7 Creatinine 0.5 L Estimated GFR > 60 BUN/Creatinine Ratio 14.00 Glucose 78 Calcium 8.9 Total Bilirubin 0.50 AST 18 ALT 11 Alkaline Phosphatase 72 Total Protein 8.2 Albumin 4.0 Albumin/Globulin Ratio 1.0 Lipase 13 - Medical Decision Making 29-year-old female with known psychiatric history complaining of normal pain. This likely psychiatric in nature. Plan check labs and into discharge home. Labs unremarkable - plan to discharge home. UA still pending. Critical care attestation.: If time is entered above; I have spent that time in minutes in the direct care of this critically ill patient, excluding procedure time. ED Disposition Clinical Impression: Abdominal pain Disposition: DC-01 TO HOME OR SELFCARE Is pt being admited?: No Condition: Stable Instructions: Abdominal Pain (ED) Referrals: PRIMARY CARE, [Primary Care Provider] - 3-5 Days
[2017-05-08 12:31] LABS: Bilirubin,Direct < 0.2 mg/dL (0-0.2)
[2017-05-08] MEDS ORDERED: PEPCID ONE (13:37)
[2017-05-08] MEDS ORDERED: PEPCID PO ONE (13:46)
[2017-05-08 16:33] VITALS: BP 110/78
[2017-05-08 16:40] LABS: Bilirubin,Urine NEG (Negative); Blood,Urine LG (Negative); Ketones,Urine 20 mg/dL (Negative); Leukocyte Esterase,Urine MOD (Negative); Mucus,Urine FEW /HPF; Nitrite,Urine NEG (Negative); Protein,Urine <15 mg/dL mg/dL (Negative); Urobilinogen,Urine < 2.0 mg/dL (<2.0)
== END 2017-05-08 16:36 | disposition home or self-care (01) ==
LOC: ED 09:53
DX: F20.0 Paranoid schizophrenia (principal); R10.84 Generalized abdominal pain
CPT/HCPCS: 36415; 80048; 80074; 81001; 83690; 84703; 85025; 96361; 96374; 99284; J2405; J7030

== ENCOUNTER 2017-07-23 07:25 | Emergency (ER) | payer MEDICAID ==
--- NOTE | 2017-07-23 08:27 | Emergency Department Report ---
Chief Complaint: Medical Clearance Stated Complaint: ALL OVER BODDY PAIN Time Seen by Provider: 07/23/17 08:26 - HPI History of Present Illness: psych hx wants meds refilled hyperverbal told me just ran out of med told rn it has been 2 y states whole body hurts brenda vagina will need eval a rx given labs and urine ordered vss nad non toxic no si no hi no a/v hollins - Exam Vital Signs: Vital Signs 07/23/17 07:29 Temperature 98.1 F Pulse Rate 102 H Respiratory 16 Rate Blood Pressure 108/68 O2 Sat by Pulse 100 Oximetry MSE screening note: Focused history and physical exam performed. Due to findings the following was ordered: ED Disposition for MSE Condition: Stable Referrals: PRIMARY CARE, [Primary Care Provider] - 3-5 Days
[2017-07-23 08:47] LABS: Urine Drugs of Abuse Note Disclamer
[2017-07-23 08:52] LABS: Basophils % (Auto) 0.4 % (0.0-1.8); Eosinophils % (Auto) 0.8 % (0.0-4.3); Hematocrit 40.5 % (30.3-42.9); Hemoglobin 13.3 gm/dl (10.1-14.3); Mean Corpuscular HGB Conc 33 % (30-34); Mean Corpuscular Hemoglobin 31 pg (28-32); Mean Corpuscular Volume 94 fl (79-97); Platelet Count 203 K/mm3 (140-440); Red Blood Count 4.29 M/mm3 (3.65-5.03); Red Cell Distribution Width 13.9 % (13.2-15.2); White Blood Count 5.9 K/mm3 (4.5-11.0)
[2017-07-23 09:06] LABS: Bilirubin,Urine NEG (Negative); Blood,Urine NEG (Negative); Ketones,Urine NEG (Negative); Leukocyte Esterase,Urine NEG (Negative); Mucus,Urine FEW /HPF; Nitrite,Urine NEG (Negative); Protein,Urine <15 mg/dL mg/dL (Negative); RBC,Urine < 1.0 /HPF (0.0-6.0); Urobilinogen,Urine < 2.0 mg/dL (<2.0); WBC,Urine < 1.0 /HPF (0.0-6.0)
[2017-07-23 10:00] LABS: Alanine Aminotransferase 17 units/L (7-56); Albumin 4.3 g/dL (3.9-5); Albumin/Globulin Ratio 1.2 %; Alkaline Phosphatase 69 units/L (35-129); Anion Gap 16 mmol/L; BUN/Creatinine Ratio 12; Blood Urea Nitrogen 6 mg/dL (7-17); Calcium 9.1 mg/dL (8.4-10.2); Carbon Dioxide 26 mmol/L (22-30); Chloride 100.6 mmol/L (98-107); Glucose 89 mg/dL (65-100); Sodium 139 mmol/L (137-145); Total Protein 7.9 g/dL (6.3-8.2)
[2017-07-23] MEDS ORDERED: TORADOL IM ONE (14:21)
[2017-07-23 14:26] VITALS: BP 104/76
--- NOTE | 2017-07-23 14:39 | Emergency Department Report ---
HPI - General Chief Complaint: Medical Clearance Time Seen by Provider: 07/23/17 08:26 - HPI HPI: This is a 31-year-old female presents to the emergency department with complaint of generalized body aches but most specifically vaginal pain. She denies any dysuria, vaginal discharge or bleeding. She has not taken anything for her symptoms prior presentation. She says that she has a urgent care that she uses as her primary care as well as an PET CARE TECHNICIAN in [place]. She says she saw the PCP recently and had a vaginal exam and that everything was fine but she is still concerned. She does have a psychiatric history as well and says she takes hydroxyzine and used to be on Seroquel and trazodone. She denies any suicidal or homicidal ideations or any hallucinations. ED Past Medical Hx - Past Medical History Hx Hypertension: No Hx Heart Attack/AMI: No Hx Congestive Heart Failure: No Hx GERD: (NOT DIAGNOSED) Hx Liver Disease: No Hx Renal Disease: No Hx Sickle Cell Disease: No Hx Arthritis: No Hx Seizures: No Hx Psychiatric Treatment: Yes (paranoid schizophrenia, PANIC ATTACKS, frequent hospitalizations) Hx Asthma: No Hx Tuberculosis: No Hx HIV: Yes Additional medical history: Psychiatric medications are unknown - Surgical History Past Surgical History?: No - Social History Smoking Status: Former Smoker Substance Use Type: None - Medications Home Medications: Home Medications Medication Instructions Recorded Confirmed Last Taken Type Benztropine [Cogentin] 0.5 mg PO BID #60 tablet 06/21/16 09/12/16 09/11/16 22: 00 Rx Docusate Sodium [Colace] 100 mg PO BID PRN #20 capsule 06/21/16 09/12/16 Rx Emtricita/Rilpivirine/Tenof Df 1 each PO DAILY #30 tablet 06/21/16 09/12/16 09:30 Rx [Complera Tablet] FLUoxetine [PROzac] 10 mg PO QDAY #30 tablet 06/21/16 09/12/16 09/11/16 22:00 Rx Acetaminophen/Codeine [Tylenol #3] 1 tab PO Q6H PRN #30 tab 09/12/16 Unknown Rx cloZAPine 100 mg PO BID 09/12/16 09/12/16 09/11/16 21:00 History Hydroxyzine HCl 25 mg PO BID #10 tablet 10/17/16 Unknown Rx ED Review of Systems ROS: Stated complaint: ALL OVER BODDY PAIN Other details as noted in HPI Comment: All other systems reviewed and negative Constitutional: denies: chills, fever Eyes: denies: eye pain, eye discharge, vision change ENT: denies: ear pain, throat pain Respiratory: denies: cough, shortness of breath, wheezing Cardiovascular: denies: chest pain, palpitations Gastrointestinal: denies: abdominal pain, nausea, diarrhea Genitourinary: other (vaginal pain). denies: urgency, dysuria, discharge Musculoskeletal: myalgia. denies: joint swelling Skin: denies: rash, lesions Neurological: denies: headache, weakness, paresthesias Psychiatric: denies: auditory hallucinations, visual hallucinations, homicidal thoughts, suicidal thoughts Physical Exam - Physical Exam Vital Signs: Vital Signs 07/23/17 07/23/17 07:29 14:24 Temperature 98.1 F 98.1 F Pulse Rate 102 H 93 H Respiratory 16 18 Rate Blood Pressure 108/68 Blood Pressure 104/76 [Left] O2 Sat by Pulse 100 98 Oximetry Physical Exam: GENERAL: The patient is well-developed well-nourished. HENT: Normocephalic. Atraumatic. Patient has moist mucous membranes. EYES: Extraocular motions are intact. Pupils equal reactive to light bilaterally. NECK: Supple. Trachea is midline. CHEST/LUNGS: Clear to auscultation. There is no respiratory distress noted. HEART/CARDIOVASCULAR: Regular. There is no tachycardia. There is no gallop rub or murmur. ABDOMEN: Abdomen is soft, nontender. Patient has normal bowel sounds. There is no abdominal distention. SKIN: There is no rash. There is no edema. There is no diaphoresis. NEURO: The patient is awake, alert, and oriented. The patient is cooperative. The patient has no focal neurologic deficits. MUSCULOSKELETAL: There is no tenderness or deformity. There is no limitation range of motion. There is no evidence of acute injury. : There appears to be one single condyloma to the left labia. There are no lesions or any discharge within the vagina showing etiology of her discomfort. PSYCH: Patient has pressured speech. ED Course Vital Signs 07/23/17 07/23/17 07:29 14:24 Temperature 98.1 F 98.1 F Pulse Rate 102 H 93 H Respiratory 16 18 Rate Blood Pressure 108/68 Blood Pressure 104/76 [Left] O2 Sat by Pulse 100 98 Oximetry ED Medical Decision Making - Lab Data Result diagrams: 07/23/17 08:42 07/23/17 08:42 - Medical Decision Making 31-year-old female presents to the emergency department mostly with complaint of some vaginal pain. She denies any dysuria, vaginal bleeding or discharge. Her labs and unremarkable including no UTI and the patient is not . She has a history of paranoid schizophrenia and anxiety and does present with some pressured speech. She denies any current hallucinations, suicidal or homicidal ideations. The crisis counselor from [facility] came and evaluated the patient and agrees that she does not appear to meet criteria to be made a 1013 and does not require inpatient psychiatric admission. However she was given some referrals for psychiatry which will also be helpful as the patient is requesting some medication refills for psychiatric medications that she says she has not been on it about 2 years. I did a physical exam including a pelvic exam that did not show any etiology of her vaginal discomfort but certainly does not appear to show any need for inpatient medical admission. Vital signs stable throughout ED course. She has a history of multiple visits for physical complaints that end up being related to her psychiatric conditions. She may very well have vaginal discomfort but she does not appear to be in any acute distress and she has been given multiple referrals for PET CARE TECHNICIAN. She has been encouraged to return to the ER with any worsening of her symptoms or any acute distress. - Differential Diagnosis HPV, cellulitis, Bartholin's abscess Critical Care Time: No Critical care attestation.: If time is entered above; I have spent that time in minutes in the direct care of this critically ill patient, excluding procedure time. ED Disposition Clinical Impression: History of schizophrenia, Vaginal pain Disposition: DC-01 TO HOME OR SELFCARE Is pt being admited?: No Condition: Stable Additional Instructions: You were seen here today for vaginal pain. I have given you some referrals for PET CARE TECHNICIAN groups as requested. He was seen by the crisis counselor today who also gave you a referral for a psychiatrist. Please follow-up with the psychiatrist or any psychiatrist in the next few days to get restarted and/or refills of her medications. Return to the emergency Department with any worsening of her symptoms or any acute distress. Referrals: PRIMARY CAREMD [Primary Care Provider] - 3-5 Days [facility] [Provider Group] - 3-5 Days [facility] [Provider Group] - [facility] - [facility]-5 Days Time of Disposition: 18:38
== END 2017-07-23 19:08 | disposition home or self-care (01) ==
LOC: ED 07:25
DX: R10.2 Pelvic and perineal pain (principal); Z87.891 Personal history of nicotine dependence; F20.0 Paranoid schizophrenia; Z21 Asymptomatic human immunodeficiency virus [HIV] infection status
CPT/HCPCS: 36415; 80053; 80307; 81001; 81025; 85025; 96372; 99284; J1885

== ENCOUNTER 2017-08-24 16:11 | Emergency (ER) | payer MEDICAID ==
[2017-08-24 16:33] VITALS: BP 108/71
[2017-08-24 16:53] LABS: Basophils % (Auto) 0.2 % (0.0-1.8); Eosinophils % (Auto) 0.2 % (0.0-4.3); Hematocrit 39.9 % (30.3-42.9); Hemoglobin 13.3 gm/dl (10.1-14.3); Lymphocytes # (Auto) 2.4 K/mm3 (1.2-5.4); Lymphocytes % (Auto) 24.2 % (13.4-35.0); Mean Corpuscular HGB Conc 33 % (30-34); Mean Corpuscular Hemoglobin 32 pg (28-32); Mean Corpuscular Volume 95 fl (79-97); Monocytes # (Auto) 0.7 K/mm3 (0.0-0.8); Monocytes % (Auto) 6.8 % (0.0-7.3); Platelet Count 198 K/mm3 (140-440); Red Blood Count 4.19 M/mm3 (3.65-5.03)
[2017-08-24 17:06] LABS: Bilirubin,Urine NEG (Negative); Blood,Urine NEG (Negative); Color,Urine Yellow (Yellow); Nitrite,Urine NEG (Negative); Protein,Urine <15 mg/dL mg/dL (Negative); Urobilinogen,Urine < 2.0 mg/dL (<2.0)
[2017-08-24 17:12] LABS: Alanine Aminotransferase 12 units/L (7-56); BUN/Creatinine Ratio 12; Blood Urea Nitrogen 6 mg/dL (7-17); Calcium 8.4 mg/dL (8.4-10.2); Hemolysis Index 10; Lipase 21 units/L (13-60)
== END 2017-08-25 01:02 | disposition left against medical advice (07) ==
LOC: ED 16:11
DX: R10.9 Unspecified abdominal pain (principal); Z53.21 Procedure and treatment not carried out due to patient leaving prior to being seen by health care provider
CPT/HCPCS: 36415; 80053; 81001; 83690; 85025

== ENCOUNTER 2017-09-12 15:28 | Emergency (ER) | payer MEDICAID ==
[2017-09-12 20:59] VITALS: BP 107/69
== END 2017-09-12 21:15 | disposition left against medical advice (07) ==
LOC: ED 15:28
DX: M54.5 Low back pain (principal); Z53.21 Procedure and treatment not carried out due to patient leaving prior to being seen by health care provider

== ENCOUNTER 2017-10-21 16:15 | Emergency (ER) | payer MEDICAID ==
[2017-10-21 16:22] VITALS: BP 90/63
[2017-10-21] MEDS ORDERED: MOTRIN PO ONE (18:14)
--- NOTE | 2017-10-21 19:27 | Emergency Department Report ---
HPI - General Chief Complaint: Pain General Time Seen by Provider: 10/21/17 18:08 - HPI HPI: 32-year-old [place] female with a past medical history paranoid schizophrenic panic attacks HIV comes in today for complaint of headache vaginal pain and leg pain for a few days. Patient reports that she has not taken any medication. She reports of vaginal pain she reports she is sexually active with 2 partners no protection also complains of bilateral lower leg pain without any known trauma. Patient reports that she views a douche last night in her vaginal area. ED Past Medical Hx - Past Medical History Hx Hypertension: No Hx Heart Attack/AMI: No Hx Congestive Heart Failure: No Hx GERD: (NOT DIAGNOSED) Hx Liver Disease: No Hx Renal Disease: No Hx Sickle Cell Disease: No Hx Arthritis: No Hx Seizures: No Hx Psychiatric Treatment: Yes (paranoid schizophrenia, PANIC ATTACKS, frequent hospitalizations) Hx Asthma: No Hx Tuberculosis: No Hx HIV: Yes Additional medical history: Psychiatric medications are unknown - Social History Smoking Status: Never Smoker Substance Use Type: None - Medications Home Medications: Home Medications Medication Instructions Recorded Confirmed Last Taken Type Benztropine [Cogentin] 0.5 mg PO BID #60 tablet 06/21/16 09/12/16 09/11/16 22: 00 Rx Docusate Sodium [Colace] 100 mg PO BID PRN #20 capsule 06/21/16 09/12/16 Rx Emtricita/Rilpivirine/Tenof Df 1 each PO DAILY #30 tablet 06/21/16 09/12/16 09:30 Rx [Complera Tablet] FLUoxetine [PROzac] 10 mg PO QDAY #30 tablet 06/21/16 09/12/16 09/11/16 22:00 Rx Acetaminophen/Codeine [Tylenol #3] 1 tab PO Q6H PRN #30 tab 09/12/16 Unknown Rx cloZAPine 100 mg PO BID 09/12/16 09/12/16 09/11/16 21:00 History Hydroxyzine HCl 25 mg PO BID #10 tablet 10/17/16 Unknown Rx ED Review of Systems ROS: Stated complaint: BODY HURTING Other details as noted in HPI Constitutional: denies: chills, fever Eyes: denies: eye pain, eye discharge, vision change ENT: denies: ear pain, throat pain Respiratory: denies: cough, shortness of breath, wheezing Cardiovascular: denies: chest pain, palpitations Endocrine: no symptoms reported Gastrointestinal: denies: abdominal pain, nausea, diarrhea Genitourinary: denies: urgency, dysuria, discharge Musculoskeletal: other (bilateral leg pain). denies: back pain, joint swelling , arthralgia Skin: denies: rash, lesions Neurological: denies: headache, weakness, paresthesias Psychiatric: denies: anxiety, depression Hematological/Lymphatic: denies: easy bleeding, easy bruising Physical Exam - Physical Exam Vital Signs: Vital Signs 10/21/17 16:20 Temperature 98.4 F Pulse Rate 100 H Respiratory 18 Rate Blood Pressure 90/63 O2 Sat by Pulse 97 Oximetry General: GENERAL: Alert and oriented x3, no apparent distress, Normal Gait, atraumatic. HEAD: Head is normocephalic and a-traumatic. EYES: Extra ocular muscles are intact. Pupils are equal, round, and reactive to light and accommodation. EARS: symetrical, atraumatic, non tender, ear canal clear and moderate cerumen, tympanic membrance non inflamed. gross auditory nml bilaterally. NOSE: Nose symetrical, Nontender,Nares appeared normal. MOUTH:Mouth is well hydrated and without lesions. Tonsils nonerythematous or swollen, Uvula midline, Tongue not elevated. Mucous membranes are moist. Posterior pharynx clear, no exudate or lesions. Patent airways. NECK: Supple. Non edematous, No carotid bruits. No lymphadenopathy or thyromegaly. LUNGS: Symetrical with respiration, No wheezing, no rales or crackles, CTAB. HEART: S1, S2 present, regular rate and rhythm without murmur, no rubs, no gallops. ABDOMEN: No organomegaly was noted,Positive bowel sounds, soft, and non- distended. . Nontender to palpation on all Quadrants, NO CVA tenderness. BREAST: Symetrical, Supple bilaterally, No Masses, lumps, lesions, ulcerations. GENITOURINARY: External genitalia without erythema, exudate or discharge. Vaginal vault is without discharge. Cervix is of normal color without lesion. Cervical os is closed. No bleeding noted. Uterus is noted to be of normal size and nontender. No cervical motion tenderness. No masses are palpated. The adnexa are without masses or tenderness. EXTREMITIES/MUSCULOSKELETAL: No cyanosis, clubbing, rash, lesions or edema. Full ROM bilaterally. UE/LE Pulses 2+ bilaterally. LE and UE 5+ strength bilaterally NEUROLOGIC: No focal Deficit, Cranial nerves II through XII are grossly intact. No loss of sensation, No facial droop, PSYCHIATRIC: Patient is paranoid, pressured speech, denies suicidal or homicidal ideations. SKIN: Warm and dry, No lesions, No ulceration or induration present ED Course Vital Signs 10/21/17 16:20 Temperature 98.4 F Pulse Rate 100 H Respiratory 18 Rate Blood Pressure 90/63 O2 Sat by Pulse 97 Oximetry ED Medical Decision Making - Medical Decision Making Patient's been evaluated by this provider fast track. Patient was given ibuprofen for leg pain and head pain. Patient reports that she has lost one of her friends Visa at [employer] and she is scared that he is going to kill her. Critical care attestation.: If time is entered above; I have spent that time in minutes in the direct care of this critically ill patient, excluding procedure time. ED Disposition Clinical Impression: Headache Qualifiers: Headache type: unspecified Headache chronicity pattern: acute headache Intractability: intractable Qualified Code(s): R51 - Headache Disposition: DC-01 TO HOME OR SELFCARE Is pt being admited?: No Does the pt Need Aspirin: No Condition: Stable Instructions: Acute Headache (ED) Additional Instructions: Please take your medications as prescribed. Follow up with her primary care provider. These follow-up which is psychiatrist. Referrals: MARV JEFFREY MD [Primary Care Provider] - 3-5 Days [facility] [Provider Group] - 3-5 Days
[2017-10-21 20:03] LABS: Bilirubin,Urine NEG (Negative); Blood,Urine LG (Negative); Color,Urine Yellow (Yellow); Mucus,Urine FEW /HPF; Protein,Urine <15 mg/dL mg/dL (Negative); Urobilinogen,Urine < 2.0 mg/dL (<2.0)
[2017-10-21 20:04] LABS: HCG Qualitative,Urine Negative (Negative)
== END 2017-10-21 21:25 | disposition home or self-care (01) ==
LOC: ED 16:15
DX: R51 Headache (principal)
CPT/HCPCS: 81001; 81025

== ENCOUNTER 2017-11-23 12:07 | Emergency (ER) | payer MEDICAID ==
[2017-11-23 14:58] LABS: Bilirubin,Urine NEG (Negative); Blood,Urine NEG (Negative); Color,Urine Straw (Yellow); Hyaline Casts,Urine 1 /LPF; Protein,Urine <15 mg/dL mg/dL (Negative); Urobilinogen,Urine < 2.0 mg/dL (<2.0)
[2017-11-23 14:59] LABS: Basophils % (Auto) 0.3 % (0.0-1.8); Eosinophils % (Auto) 0.6 % (0.0-4.3); Hematocrit 38.5 % (30.3-42.9); Lymphocytes # (Auto) 2.4 K/mm3 (1.2-5.4); Lymphocytes % (Auto) 28.9 % (13.4-35.0); Mean Corpuscular HGB Conc 34 % (30-34); Mean Corpuscular Hemoglobin 32 pg (28-32); Mean Corpuscular Volume 95 fl (79-97); Monocytes # (Auto) 0.6 K/mm3 (0.0-0.8); Monocytes % (Auto) 7.6 % (0.0-7.3); Platelet Count 241 K/mm3 (140-440); Red Blood Count 4.05 M/mm3 (3.65-5.03); Red Cell Distribution Width 14.1 % (13.2-15.2)
[2017-11-23 15:06] LABS: Amphetamine Screen,Urine PRESUMPTIVE NEGATIVE; Benzodiazepines Screen,Urine PRESUMPTIVE NEGATIVE; Cannabinoid Screen,Urine PRESUMPTIVE NEGATIVE; Cocaine Screen,Urine PRESUMPTIVE NEGATIVE; Methadone Screen,Urine PRESUMPTIVE NEGATIVE; Opiate Screen,Urine PRESUMPTIVE NEGATIVE
[2017-11-23 15:18] LABS: BUN/Creatinine Ratio 15; Blood Urea Nitrogen 9 mg/dL (7-17); Calcium 8.8 mg/dL (8.4-10.2); Hemolysis Index 0
[2017-11-23 16:11] LABS: HCG Qualitative,Urine Negative (Negative)
[2017-11-23] MEDS ORDERED: MOTRIN PO ONE (16:27)
[2017-11-23 17:10] VITALS: BP 114/68
--- NOTE | 2017-11-23 17:28 | Emergency Department Report ---
ED General Adult HPI - General Chief complaint: Medical Clearance Stated complaint: PREG TEST/EYES BLIND/TEETH HURT Time Seen by Provider: 11/23/17 16:11 Source: patient Mode of arrival: Ambulatory Limitations: No Limitations - History of Present Illness Initial comments: pt. says she wants a vaginal examination and says she thinks she as an infection in her vagina, she also says she will like a test. she said the last period was 2 days ago but only lasted for 2 days.she also complains of pain in teeth and headache. 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 MD Complaint: vaginal infection -: Gradual Location: head, genitals Radiation: non-radiation Severity scale (0 -10): 0 Consistency: now resolved Improves with: none Worsens with: none Associated Symptoms: denies other symptoms Treatments Prior to Arrival: none - Related Data Home Medications Medication Instructions Recorded Confirmed Last Taken cloZAPine 100 mg PO BID 09/12/16 09/12/16 09/11/16 21:00 Previous Rx's Medication Instructions Recorded Last Taken Type Benztropine [Cogentin] 0.5 mg PO BID #60 tablet 06/21/16 09/11/16 22:00 Rx Docusate Sodium [Colace] 100 mg PO BID PRN #20 capsule 06/21/16 08/29/16 Rx Emtricita/Rilpivirine/Tenof Df 1 each PO DAILY #30 tablet 06/21/16 09/12/16 09: 30 Rx [Complera Tablet] FLUoxetine [PROzac] 10 mg PO QDAY #30 tablet 06/21/16 09/11/16 22:00 Rx Acetaminophen/Codeine [Tylenol #3] 1 tab PO Q6H PRN #30 tab 09/12/16 Unknown Rx Hydroxyzine HCl 25 mg PO BID #10 tablet 10/17/16 Unknown Rx Allergies Allergy/AdvReac Type Severity Reaction Status Date / Time No Known Allergies Allergy Verified 11/23/17 12:21 ED Review of Systems ROS: Stated complaint: PREG TEST/EYES BLIND/TEETH HURT Other details as noted in HPI Comment: All other systems reviewed and negative ED Past Medical Hx - Past Medical History Previous Medical History?: Yes Hx Hypertension: No Hx Heart Attack/AMI: No Hx Congestive Heart Failure: No Hx GERD: (NOT DIAGNOSED) Hx Liver Disease: No Hx Renal Disease: No Hx Sickle Cell Disease: No Hx Arthritis: No Hx Seizures: No Hx Psychiatric Treatment: Yes (paranoid schizophrenia, PANIC ATTACKS, frequent hospitalizations) Hx Asthma: No Hx Tuberculosis: No Hx HIV: Yes Additional medical history: Psychiatric medications are unknown - Surgical History Past Surgical History?: No - Social History Smoking Status: Never Smoker - Medications Home Medications: Home Medications Medication Instructions Recorded Confirmed Last Taken Type Benztropine [Cogentin] 0.5 mg PO BID #60 tablet 06/21/16 09/12/16 09/11/16 22: 00 Rx Docusate Sodium [Colace] 100 mg PO BID PRN #20 capsule 06/21/16 09/12/16 Rx Emtricita/Rilpivirine/Tenof Df 1 each PO DAILY #30 tablet 06/21/16 09/12/16 09:30 Rx [Complera Tablet] FLUoxetine [PROzac] 10 mg PO QDAY #30 tablet 06/21/16 09/12/16 09/11/16 22:00 Rx Acetaminophen/Codeine [Tylenol #3] 1 tab PO Q6H PRN #30 tab 09/12/16 Unknown Rx cloZAPine 100 mg PO BID 09/12/16 09/12/16 09/11/16 21:00 History Hydroxyzine HCl 25 mg PO BID #10 tablet 10/17/16 Unknown Rx ED Physical Exam - General Limitations: No Limitations General appearance: alert, in no apparent distress - Head Head exam: Present: atraumatic, normocephalic - Eye Eye exam: Present: normal appearance - ENT ENT exam: Present: mucous membranes moist - Neck Neck exam: Present: normal inspection - Respiratory Respiratory exam: Present: normal lung sounds bilaterally. Absent: respiratory distress - Cardiovascular Cardiovascular Exam: Present: regular rate, normal rhythm. Absent: systolic murmur, diastolic murmur, rubs, gallop - GI/Abdominal GI/Abdominal exam: Present: soft, normal bowel sounds - External exam: Present: normal external exam Speculum exam: Present: normal speculum exam Bi-manual exam: Present: normal bi-manual exam (nurse aide present for exam) - Extremities Exam Extremities exam: Present: normal inspection - Back Exam Back exam: Present: normal inspection - Neurological Exam Neurological exam: Present: alert, oriented X3 - Psychiatric Psychiatric exam: Present: normal affect, normal mood - Skin Skin exam: Present: warm, dry, intact, normal color. Absent: rash ED Course Vital Signs 11/23/17 11/23/17 12:17 17:10 Temperature 98 F 98 F Pulse Rate 105 H 81 Respiratory 18 16 Rate Blood Pressure 116/79 Blood Pressure 114/68 [Right] O2 Sat by Pulse 98 100 Oximetry - Reevaluation(s) Reevaluation #1: 11/23/17 17:49 AFTER BEING FED SHE SAYS SHE IS BETTER AND WANTS TO GO ED Medical Decision Making - Lab Data Result diagrams: 11/23/17 14:42 11/23/17 14:42 - Medical Decision Making pt. visual acuity is normal even though she says she is blind. the teeth shows no abscess and i feel the headache is tension headache.vaginal and cervical cultures were sent Critical care attestation.: If time is entered above; I have spent that time in minutes in the direct care of this critically ill patient, excluding procedure time. ED Disposition Clinical Impression: Headache Disposition: DC-01 TO HOME OR SELFCARE Is pt being admited?: No Does the pt Need Aspirin: No Condition: Stable Instructions: Tension Headache (ED) Additional Instructions: take tylenol or motrin as needed for pain Referrals: PRIMARY CARE, [Primary Care Provider] - 3-5 Days Time of Disposition: 17:33 Print Language: CROATIAN
== END 2017-11-23 18:00 | disposition home or self-care (01) ==
LOC: ED 12:07
DX: K08.89 Other specified disorders of teeth and supporting structures (principal); Z32.00 Encounter for pregnancy test, result unknown; F20.0 Paranoid schizophrenia; F41.0 Panic disorder [episodic paroxysmal anxiety]
CPT/HCPCS: 36415; 80048; 80307; 81001; 81025; 85025; 87210; 87591; 99283; G0480; 80320